=== PATIENT | female | born 1960 | race African-American/Black ===

== ENCOUNTER 2023-03-30 23:32 | Emergency (ER) | payer OTHER ==
[2023-03-30 23:57] VITALS: BP 125/79; PULSE 87; RESP 18; TEMP 98.7; BMI 37.1
[2023-03-31] MEDS ORDERED: ACETAMINOPHEN 500 MG TABLET (FP) PO ONE (00:37)
[2023-03-31] MEDS ORDERED: ACETAMINOPHEN 325 MG TABLET (FP) ONE (00:40)
== END 2023-03-31 02:09 | disposition home or self-care (01) ==
LOC: JER 23:32
DX: R51.9 Headache, unspecified (principal); S06.0X0A Concussion without loss of consciousness, initial encounter; W01.198A Fall on same level from slipping, tripping and stumbling with subsequent striking against other object, initial encounter
CPT/HCPCS: 70450-TC; 99284-25